=== PATIENT | male | born 1985 | race Caucasian/White ===

== ENCOUNTER 2016-10-11 08:09 | Emergency (ER) | payer SELFPAY ==
[~2016-10-11] VITALS: Ht 177.8 cm; Wt 80.0 kg
[~2016-10-11 08:09] MED LIST: BACT800T5 PO; TRAM50 PO
[2016-10-11 08:14] VITALS: BP 111/70; PULSE 76; RESP 16; TEMP 98.2; O2SAT 96
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
[2016-10-11] MEDS ORDERED: IBUPROFEN 600 MG TAB PO ONE (08:30)
[2016-10-11] MEDS ORDERED: IBUP-232 PO (08:38)
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
== END 2016-10-11 08:50 | disposition home or self-care (01) ==
LOC: PHED 08:09
DX: M70.21 Olecranon bursitis, right elbow (principal); Z72.0 Tobacco use
CPT/HCPCS: 73070; 99283

== ENCOUNTER 2017-01-28 15:36 | Emergency (ER) | payer SELFPAY ==
[~2017-01-28] VITALS: Ht 157.5 cm; Wt 86.0 kg
[~2017-01-28 15:36] MED LIST changes: -BACT800T5 PO; +IBUP-232 PO; -TRAM50 PO
[2017-01-28 15:46] VITALS: BP 131/70; PULSE 77; RESP 18; TEMP 98.7; O2SAT 98
[2017-01-28 16:10] LABS: BLOOD, URINE NEG (NEG); GLUCOSE,URINE NEG (NEG); KETONE, URINE NEG (NEG); NITRITE,URINE NEG (NEG)
[2017-01-28 16:23] LABS: URINE COLOR YELLOW (YELLW/STRAW)
[2017-01-28 16:24] LABS: COMMENT (UR) CULTURE INDICATED; CULTURE IF INDICATED CULTURE INDICATED; MUCUS URINE MOD /lpf (OCC); SQUAMOUS EPITHELIAL CELL URINE 0-5 /hpf (0-5)
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
[2017-01-28] MEDS ORDERED: MACR100C2 PO (16:37)
[2017-01-28] MEDS ORDERED: LIDOCAINE HCL 1% 50 ML VIAL IM ONE (16:45)
[2017-01-28] MEDS ORDERED: AZITHROMYCIN PWD FOR SUSP 1 GM PACKET PO ONE (16:45)
[2017-01-28] MEDS ORDERED: cefTRIAXone 250 MG VIAL IM ONE (16:45)
[2017-01-28 21:30] LABS: CHLAMYDIA PCR NOT DETECTED (NOT DETECT); NEISSERIA PCR NOT DETECTED (NOT DETECT)
== END 2017-01-28 17:15 | disposition home or self-care (01) ==
LOC: PHEFT 15:36
DX: N30.00 Acute cystitis without hematuria (principal); N34.2 Other urethritis
CPT/HCPCS: 81001; 87086; 87491; 87591; 96372; 99284; J0696